=== PATIENT | female | born 1965 | race Caucasian/White ===

== ENCOUNTER 2021-10-18 09:37 | Inpatient (IN) ==
[2021-10-18 11:24] LABS: Basophils # 0.1 10*3/uL (0.0-0.2); Basophils % 0.9 % (0.0-0.8); Eosinophils # 0.3 10*3/uL (0.0-0.87); Eosinophils % 3.7 % (0.00-10.9); Hematocrit 44.8 VOL% (35.7-47.0); Hemoglobin 14.3 GM/DL (12.0-16.0); Immature Granulocytes % 0.3 %; Immature Granulocytes Absolute 0.02 #; Lymphocytes # 2.6 10*3/uL (1.4-4.0); Lymphocytes % 38.2 % (21.3-54.2); Mean Corpuscular HGB Conc 31.9 GM/DL (32-36); Mean Corpuscular Volume 93.3 FL (87-102); Mean Platelet Volume 10.3 FL (9.6-12.0); Monocytes # 0.5 10*3/uL (0.11-0.8); Monocytes % 7.4 % (1.7-12.7); Neutrophils % 49.5 % (38.7-73.9); Platelet Count 271 T/CUMM (130-400); Red Cell Distribution Width 15.9 % (9.3-17.3); White Blood Count 6.8 T/CUMM (4-12)
[2021-10-18 11:47] LABS: Albumin 3.3 G/DL (3.4-5.0); Bilirubin,Total 0.5 MG/DL (0.20-1.00); Calcium 9.6 MG/DL (8.5-10.1); Osmolality,Calculated 286.4 MOS/KG (273-304); Potassium 4.3 MMOL/L (3.5-5.1); Total Protein 7.5 G/DL (6.4-8.2)
[2021-10-18 12:07] LABS: Bacteria,Urine Few /HPF (Few); RBC,Urine 769 /HPF (0-4); Squamous Epithelial Cell,Urine Many /HPF (0-10); Urine Appearance Cloudy (Clear); Urine Color Brown (Yellow)
[2021-10-18 12:08] LABS: Bilirubin,Urine Negative (Negative); Blood, Urine Large mg/dL (Negative); Glucose,Urine (UA) Negative (Negative); Ketones,Urine Negative (Negative); Nitrite,Urine Positive (Negative); Protein,Urine 100 mg/dL (Negative); Urine Specific Gravity 1.025 (1.001-1.035); Urine Urobilinogen 0.2 eU/dL (<2.0); Urine pH 5.5 (4.5-8.0)
[2021-10-18] MEDS ORDERED: cefTRIAXone 1,000 MG in SODIUM CHLORIDE 0.9% 100 ML IV STA (12:51)
[2021-10-18] MEDS ORDERED: ONDANSETRON 4 MG/2 ML VIAL IV PRN (16:01)
[2021-10-18] MEDS ORDERED: ACETAMINOPHEN 325 MG TABLET PO PRN (16:01)
[2021-10-18] MEDS ORDERED: GLUCAGON 1 MG VIAL IM PRN (16:01)
[2021-10-18] MEDS ORDERED: DEXTROSE 10% 250 ML BAG IV PRN (16:08)
[2021-10-18] MEDS: SODIUM CHLORIDE 0.9% 1,000 ML IV SCH (17:20)
[2021-10-18] MEDS: ASPIRIN EC 81 MG TABLET PO SCH (17:20)
[2021-10-18] MEDS: ENOXAPARIN 40 MG/0.4 ML SYRINGE SUBCUT SCH (17:20)
[2021-10-18] MEDS ORDERED: CELECOXIB 200 MG CAPSULE PO SCH (18:00)
[2021-10-18] MEDS: BACLOFEN 10 MG TABLET PO SCH (21:04)
[2021-10-18] MEDS: DOCUSATE SODIUM 100 MG CAPSULE PO SCH (21:04)
[2021-10-18] MEDS: CELECOXIB 200 MG CAPSULE PO SCH (21:05)
[2021-10-18] MEDS: DULoxetine 30 MG CAPSULE PO SCH (21:05)
[2021-10-18] MEDS: GABAPENTIN 400 MG CAPSULE PO SCH (21:05)
[2021-10-18] MEDS: VENLAFAXINE XR 75 MG CAPSULE PO SCH (21:05)
[2021-10-18] MEDS: ATORVASTATIN 80 MG TABLET PO SCH (21:05)
[2021-10-18] MEDS: PREGABALIN 50 MG CAPSULE PO SCH (21:07)
[2021-10-18] MEDS: oxyCODONE/ACETAMINOPHEN 5-325 MG TABLET PO PRN (21:07)
[2021-10-19] MEDS: SODIUM CHLORIDE 0.9% 1,000 ML IV SCH ×2 (00:14→04:22)
[2021-10-19 05:35] LABS: Basophils # 0.1 10*3/uL (0.0-0.2); Basophils % 0.9 % (0.0-0.8); Eosinophils # 0.2 10*3/uL (0.0-0.87); Eosinophils % 3.3 % (0.00-10.9); Hematocrit 38.7 VOL% (35.7-47.0); Hemoglobin 12.2 GM/DL (12.0-16.0); Immature Granulocytes % 0.2 %; Immature Granulocytes Absolute 0.01 #; Lymphocytes # 3.4 10*3/uL (1.4-4.0); Lymphocytes % 52.7 % (21.3-54.2); Mean Corpuscular HGB Conc 31.5 GM/DL (32-36); Mean Corpuscular Volume 93.9 FL (87-102); Mean Platelet Volume 10.7 FL (9.6-12.0); Monocytes # 0.5 10*3/uL (0.11-0.8); Monocytes % 7.4 % (1.7-12.7); Neutrophils % 35.5 % (38.7-73.9); Platelet Count 238 T/CUMM (130-400); Red Blood Count 4.12 MC/CUMM (3.8-5.5); Red Cell Distribution Width 15.9 % (9.3-17.3); White Blood Count 6.5 T/CUMM (4-12)
[2021-10-19 06:00] LABS: Albumin 2.8 G/DL (3.4-5.0); Bilirubin,Total 0.5 MG/DL (0.20-1.00); Osmolality,Calculated 286.3 MOS/KG (273-304); Thyroid Stimulating Hormone 3.36 uIU/ml (0.358-3.74); Total Protein 6.6 G/DL (6.4-8.2); VLDL Cholesterol 35.8 MG/DL
[2021-10-19 07:59] LABS: Atypical Lymphocytes S; Eosinophils 1 % (0-10); Lymphocytes 45 % (20-55); Platelet Estimate Normal; Polychromasia Slight; Total Cells Counted 100
[2021-10-19] MEDS ORDERED: cefTRIAXone 1,000 MG in SODIUM CHLORIDE 0.9% 100 ML IV SCH (08:00)
[2021-10-19] MEDS ORDERED: cefTRIAXone 2,000 MG in SODIUM CHLORIDE 0.9% 100 ML IV SCH (08:00)
[2021-10-19] MEDS: NICOTINE 21 MG/24 HR PATCH TRANSDERM SCH (09:22)
[2021-10-19] MEDS: CELECOXIB 200 MG CAPSULE PO SCH (09:23)
[2021-10-19] MEDS: ASPIRIN EC 81 MG TABLET PO SCH (09:23)
[2021-10-19] MEDS: DOCUSATE SODIUM 100 MG CAPSULE PO SCH ×2 (09:23→20:27)
[2021-10-19] MEDS: GABAPENTIN 400 MG CAPSULE PO SCH ×2 (09:23→20:27)
[2021-10-19] MEDS: BACLOFEN 10 MG TABLET PO SCH ×3 (09:23→20:27)
[2021-10-19] MEDS: PANTOPRAZOLE 40 MG TABLET PO SCH (09:23)
[2021-10-19] MEDS: oxyCODONE/ACETAMINOPHEN 5-325 MG TABLET PO PRN ×2 (09:25→18:05)
[2021-10-19] MEDS: cefTRIAXone 2,000 MG in SODIUM CHLORIDE 0.9% 100 ML IV SCH (09:26)
[2021-10-19] MEDS: PREGABALIN 50 MG CAPSULE PO SCH ×2 (12:11→20:27)
[2021-10-19] MEDS: DULoxetine 30 MG CAPSULE PO SCH (12:12)
[2021-10-19] MEDS: VENLAFAXINE XR 75 MG CAPSULE PO SCH (12:12)
[2021-10-19] MEDS: SODIUM CHLORIDE 0.45% 1,000 ML IV SCH ×2 (12:16→22:25)
[2021-10-19 13:31] LABS: Folate 15.06 NG/ML (5.38-24.0)
[2021-10-19] MEDS: ENOXAPARIN 40 MG/0.4 ML SYRINGE SUBCUT SCH (16:42)
[2021-10-19] MEDS: ATORVASTATIN 80 MG TABLET PO SCH (20:28)
[2021-10-20] MEDS ORDERED: VANCOMYCIN INJ 1,250 MG in SODIUM CHLORIDE 0.9% 250 ML IV ONE (07:17)
[2021-10-20 07:53] LABS: Basophils % 0.5 % (0.0-0.8); Eosinophils # 0.2 10*3/uL (0.0-0.87); Eosinophils % 2.8 % (0.00-10.9); Hematocrit 42.5 VOL% (35.7-47.0); Hemoglobin 13.7 GM/DL (12.0-16.0); Immature Granulocytes % 0.3 %; Immature Granulocytes Absolute 0.02 #; Lymphocytes # 2.1 10*3/uL (1.4-4.0); Lymphocytes % 34.9 % (21.3-54.2); Mean Corpuscular HGB Conc 32.2 GM/DL (32-36); Mean Corpuscular Volume 92.6 FL (87-102); Mean Platelet Volume 11.4 FL (9.6-12.0); Monocytes # 0.5 10*3/uL (0.11-0.8); Monocytes % 7.6 % (1.7-12.7); Neutrophils % 53.9 % (38.7-73.9); Platelet Count 127 T/CUMM (130-400); Red Blood Count 4.59 MC/CUMM (3.8-5.5); Red Cell Distribution Width 15.5 % (9.3-17.3); White Blood Count 6.1 T/CUMM (4-12)
[2021-10-20 09:43] LABS: Calcium 8.6 MG/DL (8.5-10.1); Osmolality,Calculated 282.3 MOS/KG (273-304); Potassium 4.6 MMOL/L (3.5-5.1)
[2021-10-20] MEDS: cefTRIAXone 2,000 MG in SODIUM CHLORIDE 0.9% 100 ML IV SCH (10:13)
[2021-10-20] MEDS: NICOTINE 21 MG/24 HR PATCH TRANSDERM SCH (10:14)
[2021-10-20] MEDS: CELECOXIB 200 MG CAPSULE PO SCH (10:18)
[2021-10-20] MEDS: DOCUSATE SODIUM 100 MG CAPSULE PO SCH ×2 (10:18→21:03)
[2021-10-20] MEDS: VENLAFAXINE XR 75 MG CAPSULE PO SCH (10:18)
[2021-10-20] MEDS: DULoxetine 30 MG CAPSULE PO SCH (10:18)
[2021-10-20] MEDS: BACLOFEN 10 MG TABLET PO SCH ×3 (10:18→21:03)
[2021-10-20] MEDS: PREGABALIN 50 MG CAPSULE PO SCH ×2 (10:19→21:30)
[2021-10-20] MEDS: ASPIRIN EC 81 MG TABLET PO SCH (10:19)
[2021-10-20] MEDS: oxyCODONE/ACETAMINOPHEN 5-325 MG TABLET PO PRN ×2 (10:19→18:37)
[2021-10-20] MEDS: GABAPENTIN 400 MG CAPSULE PO SCH ×2 (10:19→21:03)
[2021-10-20] MEDS: PANTOPRAZOLE 40 MG TABLET PO SCH (10:19)
[2021-10-20] MEDS: SODIUM CHLORIDE 0.45% 1,000 ML IV SCH ×3 (10:20→21:30)
[2021-10-20] MEDS: amLODIPine 5 MG TABLET PO SCH (10:45)
[2021-10-20] MEDS: CHOLECALCIFEROL 5,000 UNIT TABLET PO SCH (12:47)
[2021-10-20] MEDS: ENOXAPARIN 40 MG/0.4 ML SYRINGE SUBCUT SCH (17:30)
[2021-10-20] MEDS: ATORVASTATIN 80 MG TABLET PO SCH (21:03)
[2021-10-21] MEDS ORDERED: CALCIUM CARBONATE CHEW 500 MG TABLET PO PRN (03:48)
[2021-10-21] MEDS ORDERED: MELATONIN 3 MG TABLET PO PRN (03:48)
[2021-10-21 06:11] LABS: Basophils # 0.1 10*3/uL (0.0-0.2); Basophils % 0.9 % (0.0-0.8); Eosinophils # 0.2 10*3/uL (0.0-0.87); Eosinophils % 3.4 % (0.00-10.9); Hematocrit 36.8 VOL% (35.7-47.0); Hemoglobin 11.9 GM/DL (12.0-16.0); Immature Granulocytes % 0.2 %; Immature Granulocytes Absolute 0.01 #; Lymphocytes % 35.7 % (21.3-54.2); Mean Corpuscular HGB Conc 32.3 GM/DL (32-36); Mean Corpuscular Volume 93.2 FL (87-102); Monocytes # 0.5 10*3/uL (0.11-0.8); Monocytes % 9.1 % (1.7-12.7); Neutrophils % 50.7 % (38.7-73.9); Platelet Count 189 T/CUMM (130-400); Red Blood Count 3.95 MC/CUMM (3.8-5.5); Red Cell Distribution Width 15.2 % (9.3-17.3); White Blood Count 5.6 T/CUMM (4-12)
[2021-10-21 06:31] LABS: Calcium 8.6 MG/DL (8.5-10.1); Osmolality,Calculated 284.8 MOS/KG (273-304); Potassium 3.8 MMOL/L (3.5-5.1)
[2021-10-21] MEDS: oxyCODONE/ACETAMINOPHEN 5-325 MG TABLET PO PRN ×2 (06:44→14:50)
[2021-10-21] MEDS ORDERED: MEROPENEM 500 MG in SODIUM CHLORIDE 0.9% 100 ML IV SCH (08:00)
[2021-10-21] MEDS: CELECOXIB 200 MG CAPSULE PO SCH (09:04)
[2021-10-21] MEDS: VENLAFAXINE XR 75 MG CAPSULE PO SCH (09:05)
[2021-10-21] MEDS: NICOTINE 21 MG/24 HR PATCH TRANSDERM SCH (09:05)
[2021-10-21] MEDS: PANTOPRAZOLE 40 MG TABLET PO SCH (09:05)
[2021-10-21] MEDS: PREGABALIN 50 MG CAPSULE PO SCH (09:05)
[2021-10-21] MEDS: CHOLECALCIFEROL 5,000 UNIT TABLET PO SCH (09:05)
[2021-10-21] MEDS: DOCUSATE SODIUM 100 MG CAPSULE PO SCH (09:05)
[2021-10-21] MEDS: ASPIRIN EC 81 MG TABLET PO SCH (09:05)
[2021-10-21] MEDS: BACLOFEN 10 MG TABLET PO SCH ×2 (09:05→14:50)
[2021-10-21] MEDS: GABAPENTIN 400 MG CAPSULE PO SCH (09:14)
[2021-10-21] MEDS: amLODIPine 5 MG TABLET PO SCH (09:14)
[2021-10-21] MEDS: DULoxetine 30 MG CAPSULE PO SCH (09:15)
[2021-10-21] MEDS ORDERED: ERTAPENEM 1,000 MG in SODIUM CHLORIDE 0.9% 100 ML IV SCH (12:00)
[2021-10-21 16:35] VITALS: BP 135/75
[2021-10-21] MEDS: ENOXAPARIN 40 MG/0.4 ML SYRINGE SUBCUT SCH (17:10)
== END 2021-10-21 19:35 | disposition home health service (06) | DRG 689 ==
LOC: EDUNIT# → EDBD → N.ED 09:37 → N.3E 16:05 → SUATTDRO 16:05 → N.3E 17:52
PROVIDERS: ADMIT Internal Medicine; ATTEND Internal Medicine